=== PATIENT | male | born 1965 | race Caucasian/White ===

== ENCOUNTER 2019-02-10 21:47 | Observation (INO) | payer BC ==
[2019-02-10 23:16] LABS: ADD MAN DIFF? NO
[2019-02-10] MEDS: ONDANSETRON 4 MG INJ IV (23:26)
[2019-02-10] MEDS: morphine 4 MG/ML VIAL IV (23:26)
[2019-02-10 23:41] LABS: ALANINE AMINOTRANSFERASE 13 IU/L (13-69); ALBUMIN 4.4 g/dl (3.3-4.9); ALBUMIN/GLOBULIN RATIO 1.29; ALKALINE PHOSPHATASE 80 IU/L (42-121); ANION GAP 10 (5-13); ASPARTATE AMINO TRANSFERASE 33 IU/L (15-46); BILIRUBIN,INDIRECT 0.5 mg/dl (0-1.1); BILIRUBIN,TOTAL 0.5 mg/dl (0.2-1.3); BLOOD UREA NITROGEN 13 mg/dl (7-20); CALCIUM 9.3 mg/dl (8.4-10.2); CARBON DIOXIDE 24 mmol/L (21-31); CHLORIDE 102 mmol/L (97-110); CREATININE 0.69 mg/dl (0.61-1.24); Estimated GFR > 60 mL/min (>60); GLUCOSE 91 mg/dl (70-220); SODIUM 136 mmol/L (135-144); TOTAL PROTEIN 7.8 g/dl (6.1-8.1)
[2019-02-10 23:49] LABS: POTASSIUM 4.7 mmol/L (3.5-5.1)
[2019-02-10 23:51] LABS: B-TYPE NATRIURETIC PEPTIDE 98 PG/ML (0-125); TROPONIN-I 0.023 ng/ml (0.000-0.120)
[2019-02-11] LABS: BASOPHIL # 0.1 10^3/ul (0.0-0.1); BASOPHILS % 1.2 % (0.0-2.0); EOSINOPHILS # 0.3 10^3/ul (0.0-0.5); EOSINOPHILS % 2.6 % (0.0-7.0); HEMATOCRIT 43.1 % (42.0-52.0); HEMOGLOBIN 13.9 g/dl (14.0-18.0); LYMPHOCYTES # 2.8 10^3/ul (0.8-2.9); LYMPHOCYTES % 26.9 % (15.0-51.0); MEAN CORPUSCULAR HGB CONC 32.3 g/dl (32.0-37.0); MEAN CORPUSCULAR VOLUME 83.7 fl (82.0-101.0); MEAN PLATELET VOLUME 7.8 fl (7.4-10.4); MONOCYTE # 0.9 10^3/ul (0.3-0.9); MONOCYTES % 8.3 % (0.0-11.0); NEUTROPHIL # 6.4 10^3/ul (1.6-7.5); NEUTROPHILS % 60.6 % (39.0-77.0); PLATELET COUNT 245 10^3/UL (140-415); RED BLOOD COUNT 5.15 10^6/ul (4.70-6.10)
[2019-02-11] LABS: WHITE BLOOD COUNT 10.5 10^3/ul (4.8-10.8)
[2019-02-11] MEDS: ACETAMINOPHEN 325 MG TAB PO (03:07)
[2019-02-11] MEDS: KETOROLAC 15 MG INJ IV ×2 (06:34→12:33)
[2019-02-11 06:58] LABS: CREATINE KINASE 105 IU/L (23-200)
[2019-02-11 07:00] LABS: CK INDEX 1.3; CK-MB 1.35 ng/ml (0.0-2.4); TROPONIN-I 0.019 ng/ml (0.000-0.120)
[2019-02-11] MEDS: ESCITALOPRAM 10 MG TAB PO (09:00)
[2019-02-11] MEDS: BENAZEPRIL 20 MG TAB PO (09:06)
[2019-02-11] MEDS: APIXABAN 5 MG TABLET PO (09:06)
[2019-02-11] MEDS: REGADENOSON 0.4 MG/5 ML SYG (11:27)
[2019-02-11] MEDS: METHADONE (1 MG/ML 5 ML PO UD SYG) PO (12:30)
[2019-02-11] MEDS ORDERED: METHADONE (1 MG/ML 5 ML PO UD SYG) PO (12:30)
[2019-02-11] MEDS: METOPROLOL 25 MG TAB PO (12:33)
[2019-02-11 12:47] LABS: CREATINE KINASE 112 IU/L (23-200)
[2019-02-11 13:00] LABS: CK INDEX 1.1; CK-MB 1.26 ng/ml (0.0-2.4); TROPONIN-I < 0.012 ng/ml (0.000-0.120)
[2019-02-11] MEDS ORDERED: QUETIAPINE 100 MG TAB PO (21:00)
[2019-02-11] MEDS ORDERED: ATORVASTATIN 10 MG TAB PO (21:00)
== END 2019-02-11 15:44 | disposition home or self-care (01) ==
LOC: TEL 02-11 05:17 → E/R 21:47 → TEL 02-11 02:30
DX: R07.9 Chest pain, unspecified (principal); I10 Essential (primary) hypertension; I48.91 Unspecified atrial fibrillation; F17.210 Nicotine dependence, cigarettes, uncomplicated; I48.0 Paroxysmal atrial fibrillation; Z79.01 Long term (current) use of anticoagulants
CPT/HCPCS: 36415; 71045; 78452; 80053; 82550; 82553; 83880; 84484; 85025; 93005; 93017; 93306; 96374; 96375; 99285-25; G0378